=== PATIENT | male | born 1980 | race African-American/Black ===

== ENCOUNTER 2016-05-26 09:17 | Emergency (ER) | payer BC ==
[~2016-05-26] VITALS: Ht 182.9 cm; Wt 81.2 kg
[~2016-05-26 09:17] MED LIST: CETI10TA34 PO; ELIM TOP; FAMO-18 PO; KENC1 TOP; OLAN7.5T9 PO; ONDA4TAB14 PO; PRED20TA PO
[2016-05-26 09:20] VITALS: Ht 182.9 cm; Wt 81.2 kg
[2016-05-26] MEDS ORDERED: ONDANSETRON (ODT) 4 MG TAB ODT STA (10:23)
--- NOTE | 2016-05-26 11:38 | RADRPT ---
PROCEDURE: XR Chest. CLINICAL INDICATION: chest pain TECHNIQUE: Single frontal view of the chest was obtained COMPARISON: None FINDINGS: The heart and mediastinum are within normal limits. The lungs are clear. There is no pleural effusion or pneumothorax. RPTAT: AA IMPRESSION: No acute disease. .Ranjan Navarro MD, Date Time Electronically viewed and signed by .Ranjan Navarro MD, on 05/26/2016 11:37 .S/
[2016-05-26] MEDS ORDERED: ONDA8TAB14 PO (11:52)
--- NOTE | 2016-05-26 11:55 | ERD ---
ER Documentation Chief Complaint Date/Time DATE: 05/26/16 TIME: 11:53 Chief Complaint vomited 3-4 times since yesterday HPI This 35-year-old male presents with a few episodes of vomiting since yesterday. The first time started while brushing his teeth today while coughing. Denies any fevers, abdominal pain, diarrhea, shortness of breath. He is concerned that it may be related to getting hit in the left chest wall while doing self defense training. ROS All systems reviewed and are negative except as per history of present illness. Medications Home Meds Active Scripts Ondansetron (Ondansetron Odt) 8 Mg Tab.rapdis, 8 MG PO Q6H Y for NAUSEA AND/OR VOMITING, #8 TAB Prov:BRIGIDO BAUTISTA MD 05/26/16 Famotidine* (Pepcid*) 20 Mg Tablet, 20 MG PO DAILY, #15 TAB Prov:UNRULY WHITEC 01/31/16 Ondansetron (Ondansetron Odt) 4 Mg Tab.rapdis, 4 MG PO Q6H Y for NAUSEA AND/OR VOMITING, #14 TAB Prov:UNRULY WHITE PA-C 01/31/16 Permethrin* (Elimite*) 5% Cr, 1 APPLIC TOP ONCE for 1 Day, TUB Prov:IFEOMA FRANK DO 01/29/16 Prednisone* (Prednisone*) 20 Mg Tab, 40 MG PO DAILY for 4 Days, TAB Prov:BRIGIDO BAUTISTA MD 11/04/15 Cetirizine Hcl* (Cetirizine Hcl*) 10 Mg Tab.chew, 10 MG PO DAILY, #30 TAB Prov:BRIGIDO BAUTISTA MD 11/04/15 Triamcinolone Acetonide (Triamcinolone Acetonide) 0.1% - 15 Gm Cream.gm., 1 APPLIC TOP BID for 7 Days, #1 TUB Prov:BRIGIDO BAUTISTA MD 11/04/15 Reported Medications Olanzapine (Zyprexa) 7.5 Mg Tablet, 7.5 MG PO DAILY 01/19/12 Allergies Allergies: Coded Allergies: No Known Allergy (Unverified , 05/26/16) PMhx/Soc History of Surgery: No Anesthesia Reaction: No Hx Neurological Disorder: No Hx Respiratory Disorders: No Hx Cardiac Disorders: No Hx Psychiatric Problems: Yes (ANXIETY, DEPRESSION) Hx Miscellaneous Medical Probl: No Hx Alcohol Use: No Hx Substance Use: No Hx Tobacco Use: No Physical Exam Vitals Vital Signs Date Time Temp Pulse Resp B/P Pulse Ox O2 Delivery O2 Flow Rate FiO2 05/26/16 09:20 97.8 90 20 126/78 99 Physical Exam Const: [] Alert, [id number], pleasant. Head: Atraumatic Eyes: Normal Conjunctiva ENT: Normal External Ears, Nose and Mouth. Neck: Full range of motion..~ No meningismus. Resp: Clear to auscultation bilaterally Cardio: Regular rate and rhythm, no murmurs. Minimal left chest wall tenderness. Abd: Soft, non tender, non distended. Normal bowel sounds Skin: No petechiae or rashes Back: No midline or flank tenderness Ext: No cyanosis, or edema Neur: Awake and alert Psych: Normal Mood and Affect Results 24 hrs Current Medications Medications (Trade) Dose Ordered Sig/Leigh Route PRN Reason Start Time Stop Time Status Last Admin Dose Admin Ondansetron HCl (Zofran Odt) 8 mg ONCE STAT ODT 05/26/16 10:23 05/26/16 10:24 DC 05/26/16 10:35 Procedures/MDM Chest X-ray 1V Interpreted by me: Soft Tissue: No acute abnormalities Bones: No acute abnormalities Mediastinum/Cardiac Silhouette/Lungs: [No acute abnormalities]. Impression have a normal 1 view chest x-ray Patient was given Zofran and had no further episodes of vomiting is well- appearing ambulatory throughout the ED course . Patient appears to have a history of unspecified psychotic disorder gives a somewhat disjointed history of his symptoms or somatic complaints patient has no signs of abdominal pain and it appears that the vomiting may have started while gagging himself with a toothbrush accidentally. Patient has additional signs of left chest wall contusion without evidence to suggest fracture, hemothorax, pneumothorax, or emergent conditions. We discharged home a short course of Zofran and further observation. The patient was stable with no new complaints during the ER course. Clinically, there is no current evidence to suggest meningitis, sepsis, acute abdomen, pneumonia, acute coronary syndrome, pulmonary embolism, or any other emergent condition appearing to require further evaluation or hospitalization. The patient should certainly return for any new or worsening symptoms per the aftercare instructions. They should otherwise follow-up with her primary care doctor for reevaluation this week. Departure Diagnosis: Primary Impression: Vomiting Vomiting type: unspecified Vomiting Intractability: unspecified Nausea presence: unspecified Qualified Code: R11.10 - Vomiting, intractability of vomiting not specified, presence of nausea not specified, unspecified vomiting type Condition: Stable Patient Instructions: Vomiting (6Y-Adult) Additional Instructions: X-ray normal. Recheck for new or worsening symptoms BRIGIDO BAUTISTA MD May 26, 2016 11:55
[2016-05-26 12:00] VITALS: BP 124/74; PULSE 84; RESP 18; TEMP 97.9
== END 2016-05-26 12:00 | disposition home or self-care (01) ==
LOC: FTE 09:17
DX: R11.10 Vomiting, unspecified (principal)
CPT/HCPCS: 71010; 99283; Z7610